=== PATIENT | male | born 2000 | race Two or more races ===

== ENCOUNTER 2024-12-07 16:08 | Emergency (ER) | payer OTHER ==
[~2024-12-07] VITALS: Ht 180.3 cm; Wt 54.4 kg
[2024-12-07] MEDS ORDERED: 0.9 % SODIUM CHLORIDE 1,000 ML IV STA (17:35)
[2024-12-07] MEDS ORDERED: KETOROLAC TROMETHAMINE 30 MG VIAL IV ONE (17:45)
[2024-12-07] MEDS ORDERED: TAMSULOSIN HCL 0.4 MG CAP PO ONE (17:45)
[2024-12-07 18:08] LABS: BASO % 1.1 % (0.1-1.2); EOS # 0.08 (0.04-0.54); EOS % 1.2 % (0.7-7.0); HEMATOCRIT 37.7 % (40.1-51.0); LYMPH # 2.06 (1.18-3.74); MEAN CORPUSCULAR HEMOGLOBIN 30.6 pg (25.6-32.2); MONO # 0.75 (0.24-0.82); MONO % 11.3 % (4.7-12.5); NEUT # 3.67 (1.56-6.13); NEUT % 55.2 % (34.0-71.1); PLATELET COUNT 277 K/uL (163-369); RED BLOOD COUNT 4.57 M/uL (4.63-6.08); RED CELL DISTRIBUTION WIDTH 11.6 % (11.6-14.4)
[2024-12-07 18:09] LABS: PH,URINE 6.5 (5.0-8.0); URINE APPEARANCE Clear; URINE BILIRRUBIN Negative (NEGATIVE); URINE BLOOD Large; URINE COLOR Yellow; URINE GLUCOSE Negative (NEGATIVE); URINE KETONE Negative (NEGATIVE); URINE LEUKOCYTE Negative; URINE NITRATE Negative; URINE PROTEIN Negative (NEGATIVE)
[2024-12-07 18:14] LABS: URINE BACTERIA 14.6 uL (0.0-1933); URINE RBC 917.1 uL (0.0-20.8); URINE WBC 10.1 uL (0.0-23.2)
[2024-12-07 18:18] LABS: URINE CAST 0.14 uL (0.0-1.40); URINE EPITHELIAL CELLS 0.7 uL (0.0-38.8)
[2024-12-07 18:33] LABS: CALCIUM 9.2 mg/dL (8.5-10.1); CREATININE SERUM 0.84 mg/dL (0.70-1.30); GFR 112.26; INR 1.15; PARTIAL THROMBOPLASTIN TIME 28.7 SECONDS (22.0-34.0); POTASSIUM 3.76 mEq/L (3.5-5.1); PROTHROMBIN TIME 12.4 SECONDS (9.0-11.5)
== END 2024-12-07 21:45 | disposition home or self-care (01) ==
LOC: ER 16:08
PROVIDERS: Emergency Medicine
DX: N20.0 Calculus of kidney (principal); R10.9 Unspecified abdominal pain